=== PATIENT | female | born 1950 | race Caucasian/White ===

== ENCOUNTER 2023-08-02 08:17 | Outpatient (CLI) | payer MEDICARE | END 2023-08-02 08:18 | disposition home or self-care (01) | LOC: ULT 08:17 | PROVIDERS: ATTEND Nurse Practitioner Family | DX: R10.10 Upper abdominal pain, unspecified (principal); K76.0 Fatty (change of) liver, not elsewhere classified; K83.8 Other specified diseases of biliary tract | CPT/HCPCS: 76700 ==

== ENCOUNTER 2023-11-08 12:42 | Outpatient (CLI) | payer MEDICARE ==
[2023-11-08] MEDS ORDERED: Sterile Water 10 ML ONE (14:20)
[2023-11-08] MEDS ORDERED: Bacteriostatic Normal Saline 30 ML VIAL ONE (14:21)
== END 2023-11-08 12:43 | disposition home or self-care (01) ==
LOC: NM 12:42
PROVIDERS: ATTEND Physician Assistant Medical
DX: R10.13 Epigastric pain (principal)
CPT/HCPCS: 78227; A9537